=== PATIENT | female | born 1955 ===

== ENCOUNTER 2018-04-11 15:18 | Emergency (ER) | payer BC ==
[2018-04-11 15:31] VITALS: BP 150/71; PULSE 90; RESP 18; TEMP 99.1; O2SAT 97
--- NOTE | 2018-04-11 17:02 | C.PDOC ---
History Of Present Illness 62 year old female presents to the ED for evaluation of atraumatic right wrist pain that began 1 day ago. Patient reports she did not take any medication for the pain and is right hand dominate. Denies trauma, fever, chills, nausea, vomiting, and any other associated symptoms. Time Seen by Provider: 04/11/18 15:52 Chief Complaint (Nursing): Finger,Hand,&Wrist History Per: Patient History/Exam Limitations: no limitations Onset/Duration Of Symptoms: Days Current Symptoms Are (Timing): Still Present Past Medical History Reviewed: Historical Data, Nursing Documentation, Vital Signs Vital Signs: Last Vital Signs Temp 99.1 F 04/11/18 15:29 Pulse 90 04/11/18 15:29 Resp 18 04/11/18 15:29 BP 150/71 04/11/18 15:29 Pulse Ox 97 04/11/18 15:29 - [facility] Procedures CULDOTOMY (01/22/00) UTERINE LES DESTRUCT NEC (01/22/00) VAGINOTOMY NEC (01/22/00) Family History: States: Unknown Family Hx - Social History Hx Alcohol Use: Yes Hx Substance Use: No - Immunization History Hx Tetanus Toxoid Vaccination: No Hx Influenza Vaccination: No Hx Pneumococcal Vaccination: No Review Of Systems Except As Marked, All Systems Reviewed And Found Negative. Musculoskeletal: Positive for: Hand Pain (right wrist pain.) Physical Exam - Physical Exam Appears: Non-toxic, No Acute Distress Skin: Normal Color, Warm, Dry Head: Atraumatic, Normacephalic Eye(s): bilateral: Normal Inspection, PERRL, EOMI Nose: Normal Oral Mucosa: Moist Neck: Normal ROM, Supple Chest: Symmetrical Cardiovascular: Rhythm Regular, No Murmur Respiratory: Normal Breath Sounds, No Rales, No Rhonchi, No Wheezing Gastrointestinal/Abdominal: Normal Exam, Soft, No Tenderness Extremity: Normal ROM (x4), Other (right wrist pain: no crepitus. no erythema. non infectious process to the right dorsal arm. normal color and temperature. atraumatic. ) Pulses: Left Radial: Normal, Right Radial: Normal Neurological/Psych: Oriented x3, Normal Speech, Normal Motor, Normal Sensation, Normal Reflexes Gait: Steady ED Course And Treatment O2 Sat by Pulse Oximetry: 97 (RA) Pulse Ox Interpretation: Normal - Other Rad X-ray RT Wrist X-Ray: Viewed By Me, Read By Radiologist Interpretation: FINDINGS: Multilevel degenerative changes including intervertebral disc space narrowing and osteophyte formation. Facet hypertrophy. Mild curvature of the lumbar spine convex to the right. No acute displaced fracture. Pelvic calcifications, likely phleboliths. Dense atherosclerotic calcifications of the aorta. IMPRESSION: Multilevel degenerative changes. Medical Decision Making Medical Decision Making: Plan: --Given Ibuprofen. --X-ray RT wrist. Impression: right wrist pain. Progress/Update: X-ray of the RT wrist was viewed by me and appeared normal. Patient was provided with a right wrist splint. Prescribed Naproxen. Advised to follow up with [facility] within 2 day if symptoms worsened. Disposition Counseled Patient/Family Regarding: Studies Performed, Diagnosis, Need For Followup, Rx Given - Disposition Referrals: Colton Lange MD [Non-Staff] - Disposition: HOME/ ROUTINE Disposition Time: 17:00 Condition: STABLE Additional Instructions: follow up with your doctor or medical clinic within 2 days call to make an appointment take medications as prescribed return to ER if symptoms worsens or progress rest, ice, pain medication Prescriptions: Naproxen [Naprosyn] 500 mg PO BID PRN #16 tab PRN Reason: Pain, Moderate (4-7) Instructions: Joint Pain Forms: General Discharge Instructions, [facility] ([place]), Work Excuse - Clinical Impression Clinical Impression: Joint pain - Scribe Statement The provider has reviewed the documentation as recorded by the Scribe (Kandice Lindsey) Provider Attestation: All medical record entries made by the Scribe were at my direction and personally dictated by me. I have reviewed the chart and agree that the record accurately reflects my personal performance of the history, physical exam, medical decision making, and the department course for this patient. I have also personally directed, reviewed, and agree with the discharge instructions and disposition.
--- NOTE | 2018-04-11 17:04 | RAD ---
PROCEDURE: Right Wrist Radiographs. HISTORY: right wrist pain COMPARISON: None available. FINDINGS: BONES: No acute displaced fracture. JOINTS: No dislocation. Probable subtle chondrocalcinosis. SOFT TISSUES: Soft tissue swelling. No evidence of radiopaque foreign body OTHER FINDINGS: None. IMPRESSION: Soft tissue swelling. No acute displaced fracture, dislocation, or significant joint effusion identified. If symptoms persist, or if there is continued clinical concern, x-ray follow-up in 7-10 days should be considered.
== END 2018-04-11 18:31 | disposition home or self-care (01) ==
LOC: C.ER 15:18
DX: M25.531 Pain in right wrist (principal)

== ENCOUNTER 2018-04-19 10:18 | Day surgery (SDC) | payer BC ==
[2018-04-14 12:04] VITALS: BMI 37.3
[2018-04-19] MEDS ORDERED: Bupivacaine 0.25% 20 ML INJ IJ ONE (12:02)
[2018-04-19] MEDS ORDERED: ceFAZolin 1 gm in NS 2 GM/200 ML BAG IVPB ONE (12:02)
[2018-04-19] MEDS ORDERED: Lidocaine/Epinephrine 1% 1:100000 10 ML IJ ONE (12:03)
[2018-04-19] MEDS ORDERED: Propofol 10 mg/ml Inj (20 ML) ONE (12:21)
[2018-04-19] MEDS ORDERED: Midazolam 2 MG/2 ML VIAL ONE (12:52)
[2018-04-19] MEDS: Lidocaine/Epinephrine 1% 1:100000 10 ML IJ ONE ×2 (14:03→14:05)
[2018-04-19] MEDS ORDERED: Phenylephrine 10 mg/ml Inj ONE (15:10)
[2018-04-19] MEDS ORDERED: Lactated Ringer's 1,000 ML IV SCH (15:15)
--- NOTE | 2018-04-19 15:15 | PCM.SURG1 ---
Surgeon's Initial Post Op Note - Surgeon's Notes Surgeon: Dr. Pritesh Arana MD [employer] Set Up Operator: Dr. Tyrone Rain, PGY3; JOSE ALBERTO Mcnulty-III Type of Anesthesia: General LMA, Local Pre-Operative Diagnosis: Multiple lipomas of bilateral arms Operative Findings: 10 lipomas on the R arm and 6 lipomas on the L arm. Post-Operative Diagnosis: Same Operation Performed: Lipoma excision Specimen/Specimens Removed: 16 lipomas Estimated Blood Loss: EBL {In ML}: 20 Blood Products Given: N/A Drains Used: No Drains Post-Op Condition: Good Date of Surgery/Procedure: 04/19/18 Time of Surgery/Procedure: 12:45
[2018-04-19] MEDS ORDERED: Lactated Ringer's 1,000 ML IV ONE (16:10)
[2018-04-19 17:19] VITALS: BP 152/84; PULSE 75; RESP 18; TEMP 97.8; O2SAT 96
--- NOTE | 2018-04-21 02:54 | OP ---
PROCEDURE DATE: 04/19/2018 PREOPERATIVE DIAGNOSES: 1. Multiple lipoma of the left forearm. 2. Multiple lipoma of the left arm. 3. Multiple lipoma of the right forearm. 4. Multiple lipoma of the right arm. 5. Lipoma of the right elbow. PROCEDURES DONE: 1. Excision of the left forearm lipoma, anterior upper, 2 x 1 cm in size. 2. Excision of the lipoma of the left forearm, anterior lower, 1 x 1 cm in size. 3. Excision of the lipoma of left forearm posterior, 2 x 1 cm in size. 4. Excision of lipoma of the left arm, lateral, 3 x 4 cm in size. 5. Excision of the lipoma of the left arm, posterior, 3 x 2 cm in size. 6. Excision of lipoma of the left arm, posterior lower, 2 x 2 cm in size. 7. Excision of the lipoma of the right forearm, anterior upper, 2 x 1 cm in size. 8. Excision of the lipoma of the right forearm, anterior lower, 1 x 1 cm in size. 9. Excision of the lipoma of the right forearm, posterior upper, 2 x 1 cm in size. 10. Excision of the lipoma of the right forearm, posterior lower, 1 x 1 cm size. 11. Excision of the lipoma of the right forearm, lateral, 3 x 2 cm in size. 12. Excision of the lipoma of right elbow, 3 x 3 cm in size. 13. Excision of the lipoma of the right arm, posterior, 1 x 1 cm in size. 14. Excision of lipoma of the right arm, posterior two, 1 x 1 cm in size. 15. Excision of lipoma of the right arm, posterior three, 1 x 1 cm in size. 16. Excision of the lipoma of the right arm, lateral, 2 x 1 cm in size. 17. Layered closure of the right elbow wound, simple, 3 x 2 x 2 cm in size. 18. Layered closure of the right arm lateral wound, 3 x 2 x 2 cm in size. SURGEON: Pritesh Arana MD ASSISTANTS: ROVERTO Cullen; Tyrone Rain DO, PGY-3 resident; and Jen, medical student. ANESTHESIA: General with LMA. ESTIMATED BLOOD LOSS: Around 50 mL for all the procedures together. COMPLICATIONS: None. INTRAOPERATIVE FINDINGS: The patient had multiple lipomas of the forearm, left arm, right forearm, right arm as well as right elbow. DESCRIPTION OF PROCEDURE: On intraoperative steps, this is a 62-year-old female who was diagnosed with multiple lipomas of the upper extremity, and the patient was consent for excision of all the lipomas. The patient was brought to the OR, placed supine on the operating table. After induction of the anesthesia, bilateral upper extremities were prepped and draped in the usual sterile fashion. First, right forearm lipomas in the anterior and posterior, then the right arm lateral and posterior lipomas were isolated. An incision was made. Upper and lower flaps were created. All the lipomas were completely enucleated and excised, and hemostasis was achieved. Now, the similar procedure was done on the right side forearm anterior upper, and anterior lateral, posterior upper, posterior lateral, and the lateral lipomas as well as the right elbow lipoma and right arm posterior 1 to 3 and the lateral lipomas were isolated. Incision was made. Upper and lower flaps were created. All the lipomas were completely enucleated, and it was sent off the table for the pathology with a separate labeling, and hemostasis was achieved. All the wounds were irrigated. Two wounds were closed in a multiple layered fashion, the right elbow as well as the left arm lateral wound. Rest of the wounds was closed in a simple 4-0 Monocryl fashion, and dry sterile dressing was applied. The patient tolerated the procedure well. Count of the instrument and gauze was correct. There was no apparent complication. The patient was extubated to the OR, sent to the postanesthesia care unit in stable condition. Pritesh Arana MD
== END 2018-04-19 17:00 | disposition home or self-care (01) ==
LOC: C.SDS 10:18
PROVIDERS: ATTEND Surgery Surgical Critical Care
DX: D17.21 Benign lipomatous neoplasm of skin and subcutaneous tissue of right arm (principal); D17.22 Benign lipomatous neoplasm of skin and subcutaneous tissue of left arm
CPT/HCPCS: 13121; 24071; 25071; 88304; J0690; J1885; J2001; J2250; J2370; J2405; J2704; J3010; J7120

== ENCOUNTER 2018-05-01 10:15 | Day surgery (SDC) | payer BC ==
[2018-04-14 12:04] VITALS: BMI 37.3
[2018-05-01] MEDS ORDERED: Propofol 10 mg/ml Inj (20 ML) ONE (13:37)
[2018-05-01] MEDS ORDERED: Midazolam 2 MG/2 ML VIAL ONE (13:37)
--- NOTE | 2018-05-01 14:02 | PCM.SURG1 ---
Surgeon's Initial Post Op Note - Surgeon's Notes Surgeon: Dr Tobin Fitter Welder: None Type of Anesthesia: General LMA Anesthesia Administered By: Dr. Howard Pre-Operative Diagnosis: 62 yo with Postmenopausal bleeding Operative Findings: uterine prolapse gradeIII Av uterus 5 cm Post-Operative Diagnosis: same as above Operation Performed: hysteroscopy D and C attempted myosure Specimen/Specimens Removed: emc,ecc Estimated Blood Loss: EBL {In ML}: 10 Blood Products Given: N/A Drains Used: No Drains Post-Op Condition: Good Date of Surgery/Procedure: 05/01/18 Time of Surgery/Procedure: 14:01
[2018-05-01] MEDS ORDERED: HYDROmorphone 0.5 mg/0.5 ml ISec IVP PRN (14:07)
[2018-05-01 14:34] VITALS: O2SAT 100
[2018-05-01 14:57] VITALS: BP 126/71
[2018-05-01 15:37] VITALS: PULSE 87; RESP 18; TEMP 97
--- NOTE | 2018-05-03 09:16 | OP ---
PROCEDURE DATE: 05/01/2018 PREOPERATIVE DIAGNOSIS: This is a 62-year-old female with thickened endometrium, postmenopausal bleeding and noted to have uterine prolapse grade 3. POSTOPERATIVE DIAGNOSIS: This is a 62-year-old female with thickened endometrium, postmenopausal bleeding and noted to have uterine prolapse grade 3. PROCEDURES: Hysteroscopy, dilation and curettage, attempted MyoSure. SURGEON: Danisha Tobin MD TYPE OF ANESTHESIA: General LMA. ANESTHESIOLOGIST: Dr. Higgins. FINDINGS: Anteverted uterus, approximately 5-6 weeks' gestation; noted to have uterine prolapse grade 3. COMPLICATION: None. ESTIMATED BLOOD LOSS: 10 mL. INPUT AND OUTPUT: 100 mL. SPECIMEN: EMC and ECC. DESCRIPTION OF PROCEDURE: The patient was informed of the risk factors, benefits and alternatives of the procedure. Risks factors included infection, bleeding, damage to the surrounding organs and tissues, complication from anesthesia and possible . After informed consent was obtained, she was then taken to the operating room, prepped and draped in normal sterile fashion, placed in a dorsal lithotomy position. A weighted speculum was placed into the vagina. The anterior lip of the cervix was grasped with a single-tooth tenaculum. In that particular instance, the uterus was gently dilated to approximately 6 cm. The scope was then placed. A complete surveillance of the uterine cavity was then performed. The MyoSure was attempted. In that particular instance, the hysteroscope was then removed and a fractional D and C was performed. EMC and ECC were submitted to Pathology. Excellent hemostasis was noted. Upon completion, all instruments were removed from the vagina. Instrument and lap counts were correct x2. The patient was then taken to the recovery room in stable condition. Danisha Tobin MD
== END 2018-05-01 15:54 | disposition home or self-care (01) ==
LOC: C.SDS 10:15
PROVIDERS: ATTEND Obstetrics & Gynecology
DX: N83.209 Unspecified ovarian cyst, unspecified side (principal); R10.2 Pelvic and perineal pain; N95.0 Postmenopausal bleeding
CPT/HCPCS: 58558; 88305; J2250; J2405; J2704; J3010